=== PATIENT | male | born 2000 | race Two or more races ===

== ENCOUNTER 2020-09-20 12:38 | Emergency (ER) | payer SELFPAY ==
[~2020-09-20] VITALS: Ht 167.6 cm; Wt 59.0 kg
--- NOTE | 2020-09-20 12:54 | Emergency Room Report ---
History of Present Illness General Chief Complaint: Overdose Source: Patient, EMS Present Illness HPI Patient presents by paramedics reported overdose on fentanyl Patient reports that this has happened to him several times in the past Patient was given Narcan by bystanders and friends at the site and presents awake alert GCS 15 Denies any headache denies any chest pain denies any back or flank pain denies any shortness of breath denies any nausea or vomiting patient denies any suicidal thoughts or any intent to harm self Reports that this was accidental Patient on arrival asking when he can be let go and reports that he had initially refused transfer however Was told by the paramedics that he would be put to sleep and brought to the ER if he refused Allergies: Coded Allergies: No Known Allergies (Unverified , 09/20/20) COVID-19 Screening Contact w/high risk pt: No Experienced COVID-19 symptoms?: No COVID-19 Testing performed SMOKE EATER: No Patient History Past Medical History: see triage record Reviewed Nursing Documentation: PMH: Agreed; PSxH: Agreed Nursing Documentation-PMH Past Medical History: No History, Except For Review of Systems All Other Systems: negative except mentioned in HPI Physical Exam Vital Signs Date Time Temp Pulse Resp B/P (MAP) Pulse Ox O2 Delivery O2 Flow Rate FiO2 09/20/20 12:31 98.6 82 16 166/116 (133) 99 Room Air Sp02 EP Interpretation: reviewed, normal General Appearance: well appearing, no apparent distress Head: normocephalic, atraumatic Eyes: bilateral eye PERRL, bilateral eye EOMI ENT: hearing grossly normal, normal pharynx, TMs + canals normal, uvula midline Neck: full range of motion, supple, no meningismus, no bony tend Respiratory: lungs clear, normal breath sounds, no rhonchi, no respiratory distress, no retraction, no accessory muscle use Cardiovascular #1: normal peripheral pulses, regular rate, rhythm, no edema, no gallop, no JVD, no murmur Gastrointestinal: normal bowel sounds, non tender, soft, no mass, no organomegaly, non-distended, no guarding, no hernia, no pulsatile mass, no rebound Genitourinary: no CVA tenderness Musculoskeletal: normal inspection Neurologic: motor strength/tone normal, caddy master III-XII nml as tested, oriented x3, sensory intact, responsive Psychiatric: mood/affect normal Skin: no rash Lymphatic: normal inspection, no adenopathy Medical Decision Making Diagnostic Impression: Primary Impression: Drug overdose ER Course Patient presents with multiple differentials and consideration including but not limited to intentional overdose, unintentional overdose, other infectious process, neurological or neurosurgical differentials Patient otherwise has a clear report of reporting overdose on fentanyl he does report that this has happened to him before Upon arrival is awake alert GCS 15 Has full decision-making capacity refusing any further work-up or intervention he is contacting relatives and friends Patient remains awake alert is observed further in the emergency room placed on cardiac monitoring continues to have appropriate hemodynamic stability We did discuss Narcan and providing him prescriptions he reports that he has those already with him and does not require any further assistance EKG Diagnostic Results Rate: normal Rhythm: NSR ST Segments: no acute changes Last Vital Signs Date Time Temp Pulse Resp B/P (MAP) Pulse Ox O2 Delivery O2 Flow Rate FiO2 09/20/20 12:31 98.6 82 16 166/116 (133) 99 Room Air Status: improved Disposition: HOME, SELF-CARE Condition: Improved Additional Instructions: Patient is provided with the discharge instructions notified to follow up with primary doctor in the next 2-3 days otherwise return to the er with any worsening symptoms. Please note that this report is being documented using opendorse technology. This can lead to erroneous entry secondary to incorrect interpretation by the dictating instrument. Desi Teixeira DO Sep 20, 2020 12:54
[2020-09-20 13:28] VITALS: BP 166/116
--- NOTE | 2020-09-20 13:28 | NUR ---
came to [facility] from his residence with complaint that he overdosed fentanyl given narcan by his friends at thr residence on arrival patient is awke alert oriented doesnot want to be here dr batista has been notified
[2020-09-20 14:03] VITALS: BP 166/116
--- NOTE | 2020-09-20 14:04 | NUR ---
awake alert oriented denies any complaints ambulatory steady gait discharged home with inatruction to follow up with pmd
== END 2020-09-20 14:46 | disposition home or self-care (01) ==
LOC: EDBD 12:38 → EMR 13:04
DX: T40.411A Poisoning by fentanyl or fentanyl analogs, accidental (unintentional), initial encounter (principal); X58.XXXA Exposure to other specified factors, initial encounter; Y92.9 Unspecified place or not applicable
CPT/HCPCS: 99283